=== PATIENT | male | born 1980 | race Two or more races ===

== ENCOUNTER 2025-08-28 21:18 | Emergency (ER) | payer OTHER ==
[~2025-08-28] VITALS: Ht 177.8 cm; Wt 99.8 kg
[2025-08-28] MEDS ORDERED: MECLIZINE HCL 12.5 MG TABLET PO ONE ×2 (23:15→23:16)
[2025-08-29 00:03] LABS: BASO % 0.4 % (0.1-1.2); EOS # 0.06 (0.04-0.54); EOS % 0.7 % (0.7-7.0); LYMPH # 2.76 (1.18-3.74); LYMPH % 33.7 % (19.3-53.1); MEAN PLATELET VOLUME 9.20 fl (9.4-12.4); MONO # 0.66 (0.24-0.82); MONO % 8.0 % (4.7-12.5); NEUT # 4.68 (1.56-6.13); NEUT % 57.1 % (34.0-71.1); RED CELL DISTRIBUTION WIDTH 13.6 % (11.6-14.4)
[2025-08-29 00:35] LABS: ALT/SGPT 31.0 U/L (12-78); AST/SGOT 17.0 U/L (15-37); BILIRUBIN TOTAL 0.87 mg/dL (0.3-1.2); BUN CREA RATIO 13.0 (7.0-25.0); CREATININE SERUM 1.2 mg/dL (0.70-1.30); GFR 65.18; GLOBULINA 3.7 G/DL (2.4-3.5); GLUCOSE FASTING 94.0 mg/dL (65-100); OSMOLALITY SERUM 284.0 MOSM/KG (275-295)
[2025-08-29 00:50] LABS: COVID-19 AG NEGATIVE (NEGATIVE)
[2025-08-29 01:56] LABS: URINE APPEARANCE Clear; URINE BILIRRUBIN Negative (NEGATIVE); URINE BLOOD Negative; URINE COLOR Dark Yellow; URINE GLUCOSE Negative (NEGATIVE); URINE KETONE Negative (NEGATIVE); URINE LEUKOCYTE Negative; URINE NITRATE Negative; URINE PROTEIN Negative (NEGATIVE); URINE UROBILINOGEN 1.0 E.U./dl
[2025-08-29 02:01] LABS: URINE BACTERIA 95.9 uL (0.0-1933); URINE EPITHELIAL CELLS 2.3 uL (0.0-38.8); URINE RBC 9.3 uL (0.0-20.8); URINE WBC 2.4 uL (0.0-23.2)
[2025-08-29 02:05] LABS: URINE CAST 0.14 uL (0.0-1.40)
[2025-08-29 02:34] LABS: COCAINE NEGATIVE (NEGATIVE); METHADONE NEGATIVE (NEGATIVE); OPIATES NEGATIVE (NEGATIVE); THC ( Cannabinoids) POSITIVE (NEGATIVE)
[2025-08-29] MEDS ORDERED: ANTIVERT25 M2 PO (02:41)
== END 2025-08-29 02:49 | disposition home or self-care (01) ==
LOC: ER 21:18
PROVIDERS: General Practice
DX: R42 Dizziness and giddiness (principal); Z20.822 Contact with and (suspected) exposure to COVID-19; Z87.09 Personal history of other diseases of the respiratory system